=== PATIENT | male | born 1975 | race Caucasian/White ===

== ENCOUNTER 2016-12-29 15:40 | Inpatient (IN) | payer SELFPAY ==
[~2016-12-29] VITALS: Ht 170.2 cm; Wt 81.6 kg
[2016-12-29] MEDS ORDERED: IV NORMAL SALINE 1000ML BAG 1,000 ML IV SCH (15:48)
--- NOTE | 2016-12-29 15:48 | PHYS DOC ---
Adult General Chief Complaint Chief Complaint: ABDOMINAL PAIN HPI HPI Patient is a 41 year old male who presents with with left upper quadrant pain. He states it started 10 days ago and he thought he had food poisoning we had nausea vomiting and since then is calm down but he still has right upper quadrant pain that is worse about 15-30 minutes after he tries to eat. He denies any vomiting this had nausea. He denies any blood in his stools or dark tarry stools. His last bowel movement was this morning which was loose. He states the pain never completely goes away but during the middle the night at its best and then when he gets up in the mornings it starts all over again. 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 He states today his symptoms got worse. He denies any right lower quadrant pain, dysuria, fevers. Review of Systems Review of Systems Constitutional: Denies fever or chills [] Eyes: Denies change in visual acuity, redness, or eye pain [] HENT: Denies nasal congestion or sore throat [] Respiratory: Denies cough or shortness of breath [] Cardiovascular: No additional information not addressed in HPI [] GI: Denies abdominal pain, nausea, vomiting, bloody stools or diarrhea [] : Denies dysuria or hematuria [] Musculoskeletal: Denies back pain or joint pain [] Integument: Denies rash or skin lesions [] Neurologic: Denies headache, focal weakness or sensory changes [] Endocrine: Denies polyuria or polydipsia [] Current Medications Current Medications Current Medications Medications (Trade) Dose Ordered Sig/Faustino Start Time Stop Time Status Last Admin Dose Admin Info (Do NOT chart on this entry -- for MONITORING) 1 each PRN DAILY PRN 12/29/16 19:45 12/31/16 19:44 Iohexol (Omnipaque 300 Mg/ml) 75 ml 1X ONCE 12/29/16 20:00 12/29/16 20:01 DC 12/29/16 19:46 75 ML Morphine Sulfate 4 mg PRN Q15MIN PRN 12/29/16 16:00 12/30/16 00:00 12/29/16 20:34 4 MG Ondansetron HCl (Zofran) 4 mg 1X ONCE 12/29/16 16:00 12/29/16 16:10 DC Sodium Chloride 1,000 ml @ 1,000 mls/hr 1X ONCE 12/29/16 17:00 12/29/16 17:59 DC 12/29/16 16:53 1,000 MLS/HR Allergies Allergies Allergies Coded Allergies Type Severity Reaction Last Updated Verified No Known Drug Allergies 12/29/16 No Physical Exam Physical Exam Constitutional: Well developed, well nourished, no acute distress, non-toxic appearance. [] HENT: Normocephalic, atraumatic, bilateral external ears normal, oropharynx moist, no oral exudates, nose normal. [] Eyes: PERRLA, EOMI, conjunctiva normal, no discharge. [] Neck: Normal range of motion, no tenderness, supple, no stridor. [] Cardiovascular:Heart rate regular rhythm, no murmur [] Lungs & Thorax: Bilateral breath sounds clear to auscultation [] Abdomen: Bowel sounds normal, soft, mild tender palpation in the epigastric and right upper quadrant, no rebound or guarding, no masses, no pulsatile masses. [ ] Skin: Warm, dry, no erythema, no rash. [] Back: No tenderness, no CVA tenderness. [] Extremities: No tenderness, no cyanosis, no clubbing, ROM intact, no edema. [] Neurologic: Alert and oriented X 3, normal motor function, normal sensory function, no focal deficits noted. [] Psychologic: Affect normal, judgement normal, mood normal. [] Current Patient Data Vital Signs Vital Signs Date Time Temp Pulse Resp B/P (MAP) Pulse Ox O2 Delivery O2 Flow Rate FiO2 12/29/16 20:34 22 98 Room Air 12/29/16 18:38 66 120/77 (91) 12/29/16 15:45 98.3 98.3 Lab Values Laboratory Tests Test 12/29/16 16:00 12/29/16 16:45 White Blood Count 10.0 x10^3/uL (4.0-11.0) Red Blood Count 5.28 x10^6/uL (4.30-5.70) Hemoglobin 17.8 g/dL (13.0-17.5) H Hematocrit 51.3 % (39.0-53.0) Mean Corpuscular Volume 97 fL (79-100) Mean Corpuscular Hemoglobin 34 pg (25-35) Mean Corpuscular Hemoglobin Concent 35 g/dL (31-37) Red Cell Distribution Width 14.1 % (11.5-14.5) Platelet Count 251 x10^3/uL (140-400) Neutrophils (%) (Auto) 69 % (31-73) Lymphocytes (%) (Auto) 23 % (24-48) L Monocytes (%) (Auto) 5 % (0-9) Eosinophils (%) (Auto) 1 % (0-3) Basophils (%) (Auto) 1 % (0-3) Neutrophils # (Auto) 6.9 x10^3uL (1.8-7.7) Lymphocytes # (Auto) 2.3 x10^3/uL (1.0-4.8) Monocytes # (Auto) 0.5 x10^3/uL (0.0-1.1) Eosinophils # (Auto) 0.1 x10^3/uL (0.0-0.7) Basophils # (Auto) 0.1 x10^3/uL (0.0-0.2) Prothrombin Time 12.6 SEC (11.7-14.0) Prothrombin Time INR 1.0 (0.8-1.1) PTT 26 SEC (24-38) Sodium Level 142 mmol/L (136-145) Potassium Level 3.6 mmol/L (3.5-5.1) Chloride Level 104 mmol/L (98-107) Carbon Dioxide Level 26 mmol/L (21-32) Anion Gap 12 (6-14) Blood Urea Nitrogen 12 mg/dL (8-26) Creatinine 1.3 mg/dL (0.7-1.3) Estimated GFR (Cockcroft-Gault) 60.5 Glucose Level 97 mg/dL (70-99) Calcium Level 9.0 mg/dL (8.5-10.1) Total Bilirubin 0.7 mg/dL (0.2-1.0) Direct Bilirubin 0.1 mg/dL (0.0-0.2) Aspartate Amino Transferase (AST) 20 U/L (15-37) Alanine Aminotransferase (ALT) 41 U/L (16-63) Alkaline Phosphatase 70 U/L (46-116) Creatine Kinase 250 U/L (39-308) Creatine Kinase MB (Mass) 0.7 ng/mL (0.0-3.6) Creatine Kinase MB Relative Index 0.3 % (0-4) Troponin I Quantitative < 0.017 ng/mL (0.000-0.055) Total Protein 7.5 g/dL (6.4-8.2) Albumin 4.3 g/dL (3.4-5.0) Lipase 127 U/L (73-393) Urine Collection Type Unknown Urine Color Jessica Urine Clarity Clear Urine pH 5.5 Urine Specific [place] >=1.030 Urine Protein Negative mg/dL (NEG-TRACE) Urine Glucose (UA) Negative mg/dL (NEG) Urine Ketones (Stick) Negative mg/dL (NEG) Urine Blood Negative (NEG) Urine Nitrite Negative (NEG) Urine Bilirubin Negative (NEG) Urine Urobilinogen Dipstick 1.0 mg/dL (0.2 mg/dL) Urine Leukocyte Esterase Negative (NEG) Urine RBC 0 /HPF (0-2) Urine WBC Occ /HPF (0-4) Urine Squamous Epithelial Cells Occ /LPF Urine Bacteria 0 /HPF (0-FEW) Urine Opiates Screen Neg (NEG) Urine Methadone Screen Neg (NEG) Urine Barbiturates Neg (NEG) Urine Phencyclidine Screen Neg (NEG) Urine Amphetamine/Methamphetamine Neg (NEG) Urine Benzodiazepines Screen Neg (NEG) Urine Cocaine Screen Neg (NEG) Urine Cannabinoids Screen Neg (NEG) Urine Ethyl Alcohol Neg (NEG) Laboratory Tests 12/29/16 16:00 Laboratory Tests 12/29/16 16:00 EKG EKG [] Radiology/Procedures Radiology/Procedures [facility] [address] [place] [address] IMAGING REPORT Signed PATIENT: JHONNY LARKIN ACCOUNT: [id number] : 1975 LOCATION: ER AGE: 41 SEX: M EXAM STATUS: REG ER ORD. PHYSICIAN: MANDY ANGELES MD REASON: ruq pain PROCEDURE: ABDOMEN LTD EXAM: RIGHT UPPER QUADRANT ULTRASOUND. HISTORY: Right upper quadrant pain. COMPARISON: None. FINDINGS: Sonographic evaluation of the right upper quadrant was performed. Hyperechogenicity of the hepatic parenchyma is consistent with diffuse hepatic steatosis. This lowers sensitivity for focal lesions. None are seen. The gallbladder is unremarkable without evidence of stones, wall thickening or pericholecystic fluid. There is no sonographic Duran sign. The common duct measures 3 mm. The pancreas is obscured by bowel gas. The right kidney measures 12.5 cm. Cortical thickness and echogenicity are preserved. There is no hydronephrosis. The visualized portions of the abdominal aorta and inferior vena cava are grossly patent and normal in caliber. IMPRESSION: 1. Diffuse hepatic steatosis. 2. The pancreas is obscured currently. Electronically signed by: Abbey Velasquez MD (12/29/2016 7:02 PM) [facility] DICTATED and SIGNED BY: CATHERINE VELASQUEZ MD DATE: 12/29/16 608 CC: MANDY ANGELES MD; NO PCP ~ [facility] [address] [place] [address] IMAGING REPORT Signed PATIENT: JHONNY LARKIN ACCOUNT: [id number] : 1975 LOCATION: ER AGE: 41 SEX: M EXAM STATUS: REG ER ORD. PHYSICIAN: MANDY ANGELES MD REASON: ruq pain PROCEDURE: CT ABD PELV W/ IV CONTRST ONLY CT abdomen and pelvis with contrast: Reason for examination: Right upper quadrant abdominal pain for 10 days. Helical images were obtained through the abdomen and pelvis with intravenous administration of 75 cc Omnipaque 300. Reconstruction was performed in sagittal and coronal planes. Exposure: One or more of the following individualized dose reduction techniques were utilized for this examination: 1. Automated exposure control 2. Adjustment of the mA and/or kV according to patient size 3. Use of iterative reconstruction technique. The lung bases are clear. The heart size is normal with no pericardial effusion evident. No abnormality seen at the liver, spleen, adrenal glands, pancreas or gallbladder. The kidneys show no renal masses, renal calculi, hydronephrosis or evidence of obstructive uropathy. No abnormality seen at the stomach. Small intestinal tract however show some wall thickening in the region of the jejunum and some small intestinal dilatation down to the pelvis. The colon shows no diverticulosis or diverticulitis. No abnormality seen at the appendix. The abdominal aorta shows some arteriosclerotic vascular calcification. No abnormality seen at the inferior vena cava. No abnormality seen at the bladder, prostate gland or seminal vesicles. No free fluid or free air seen in the abdomen or pelvis. No acute bony abnormalities are seen. IMPRESSION: Thickening of the wall in the jejunum and dilatation of the proximal small intestine without evidence of obstruction. No gallbladder disease. No abnormality at the appendix. Electronically signed by: Rachael Mercedes MD (12/29/2016 8:15 PM) [facility] DICTATED and SIGNED BY: RACHAEL MERCEDES MD DATE: 12/29/162007 CC: MANDY ANGELES MD; NO PCP ~ Impressions: Right upper quadrant abdominal pain Course & Med Decision Making Course & Med Decision Making Pertinent Labs and Imaging studies reviewed. (See chart for details) CT scan shows enteritis essentially. His pain is not controlled is requiring IV morphine. We'll admit for pain control and GI consultation. Interim orders have been written and spoke with the hospitalist. Dragon Disclaimer Dragon Disclaimer This electronic medical record was generated, in whole or in part, using a voice recognition dictation system. Departure Departure Impression: Primary Impression: Abdominal pain Disposition: ADMITTED INPATIENT Admitting Physician: Other Condition: STABLE Problem Qualifiers Primary Impression: Abdominal pain Abdominal location: right upper quadrant Qualified Codes: R10.11 - Right upper quadrant pain MANDY ANGELES MD Dec 29, 2016 15:48
[2016-12-29] MEDS ORDERED: ONDANSETRON PF 4 MG/2 ML VIAL. IV ONE (16:00)
[2016-12-29 16:11] LABS: BASO # 0.1 x10^3/uL (0.0-0.2); BASO % 1 % (0-3); EOS % 1 % (0-3); HEMATOCRIT 51.3 % (39.0-53.0); HEMOGLOBIN 17.8 g/dL (13.0-17.5); LYMPH # 2.3 x10^3/uL (1.0-4.8); LYMPH % 23 % (24-48); MEAN CORPUSCULAR HEMOGLOBIN 34 pg (25-35); MEAN CORPUSCULAR HGB CONC 35 g/dL (31-37); MEAN CORPUSCULAR VOLUME 97 fL (79-100); MONO % 5 % (0-9); NEUT % 69 % (31-73); PLATELET COUNT 251 x10^3/uL (140-400); RED BLOOD COUNT 5.28 x10^6/uL (4.30-5.70); RED CELL DISTRIBUTION WIDTH 14.1 % (11.5-14.5)
[2016-12-29] MEDS: MORPHINE SULFATE 4 MG/ML DISP.SYRIN. IV/SQ PRN ×2 (16:14→20:34)
[2016-12-29 16:20] LABS: CREATININE 1.3 mg/dL (0.7-1.3); GFR 60.5; POTASSIUM 3.6 mmol/L (3.5-5.1); PROTHROMBIN TIME PATIENT 12.6 SEC (11.7-14.0)
[2016-12-29 16:26] LABS: ALBUMIN 4.3 g/dL (3.4-5.0); DIRECT BILIRUBIN 0.1 mg/dL (0.0-0.2); TOTAL BILIRUBIN 0.7 mg/dL (0.2-1.0); TOTAL PROTEIN 7.5 g/dL (6.4-8.2)
[2016-12-29 16:34] LABS: CKMB MASS 0.7 ng/mL (0.0-3.6)
[2016-12-29] MEDS ORDERED: IV NORMAL SALINE 1000ML BAG 1,000 ML IV ONE (17:00)
[2016-12-29 17:15] LABS: BILIRUBIN,URINE NEGATIVE (NEG); GLUCOSE,URINE NEGATIVE (NEG); NITRITE,URINE NEGATIVE (NEG); PH,URINE 5.5; PROTEIN,URINE NEGATIVE (NEG-TRACE)
[2016-12-29 17:23] LABS: BARBITURATES NEG (NEG); BENZODIAZEPINES NEG (NEG); CANNABINOIDS NEG (NEG); COCAINE NEG (NEG); METHADONE NEG (NEG); OPIATES NEG (NEG); PHENCYCLIDINE NEG (NEG)
[2016-12-29 17:30] LABS: BACTERIA,URINE 0 /HPF (0-FEW); RBC,URINE 0 /HPF (0-2); SQUAMOUS EPITHELIAL CELL,UR OCC /LPF; WBC,URINE OCC /HPF (0-4)
--- NOTE | 2016-12-29 19:06 | RAD ---
EXAM: RIGHT UPPER QUADRANT ULTRASOUND. HISTORY: Right upper quadrant pain. COMPARISON: None. FINDINGS: Sonographic evaluation of the right upper quadrant was performed. Hyperechogenicity of the hepatic parenchyma is consistent with diffuse hepatic steatosis. This lowers sensitivity for focal lesions. None are seen. The gallbladder is unremarkable without evidence of stones, wall thickening or pericholecystic fluid. There is no sonographic Duran sign. The common duct measures 3 mm. The pancreas is obscured by bowel gas. The right kidney measures 12.5 cm. Cortical thickness and echogenicity are preserved. There is no hydronephrosis. The visualized portions of the abdominal aorta and inferior vena cava are grossly patent and normal in caliber. IMPRESSION: 1. Diffuse hepatic steatosis. 2. The pancreas is obscured currently. Electronically signed by: Abbey Velasquez MD (12/29/2016 7:02 PM) [facility]
[2016-12-29] MEDS ORDERED: CONTRAST GIVEN MC PRN (19:45)
[2016-12-29] MEDS ORDERED: IOHEXOL 300 MG/ML 75 ML VIAL IV ONE (20:00)
--- NOTE | 2016-12-29 20:18 | RAD ---
CT abdomen and pelvis with contrast: Reason for examination: Right upper quadrant abdominal pain for 10 days. Helical images were obtained through the abdomen and pelvis with intravenous administration of 75 cc Omnipaque 300. Reconstruction was performed in sagittal and coronal planes. Exposure: One or more of the following individualized dose reduction techniques were utilized for this examination: 1. Automated exposure control 2. Adjustment of the mA and/or kV according to patient size 3. Use of iterative reconstruction technique. The lung bases are clear. The heart size is normal with no pericardial effusion evident. No abnormality seen at the liver, spleen, adrenal glands, pancreas or gallbladder. The kidneys show no renal masses, renal calculi, hydronephrosis or evidence of obstructive uropathy. No abnormality seen at the stomach. Small intestinal tract however show some wall thickening in the region of the jejunum and some small intestinal dilatation down to the pelvis. The colon shows no diverticulosis or diverticulitis. No abnormality seen at the appendix. The abdominal aorta shows some arteriosclerotic vascular calcification. No abnormality seen at the inferior vena cava. No abnormality seen at the bladder, prostate gland or seminal vesicles. No free fluid or free air seen in the abdomen or pelvis. No acute bony abnormalities are seen. IMPRESSION: Thickening of the wall in the jejunum and dilatation of the proximal small intestine without evidence of obstruction. No gallbladder disease. No abnormality at the appendix. Electronically signed by: Reanna Willams MD (12/29/2016 8:15 PM) [facility]
[2016-12-29] MEDS ORDERED: ONDANSETRON PF 4 MG/2 ML VIAL. IV PRN (21:00)
[2016-12-29 22:25] VITALS: BP 138/96
[2016-12-29] MEDS: POTASSIUM CHLORIDE 30 MEQ in IV 1/2 NORMAL SALINE 1,000 ML IV SCH (22:30)
[2016-12-29] MEDS: NICOTINE 21MG PATCH. TD SCH (22:30)
[2016-12-29] MEDS: MORPHINE SULFATE 2 MG/ML DISP.SYRIN. IV PRN (22:41)
--- NOTE | 2016-12-29 22:49 | HP ---
ADMIT DATE: 12/29/2016 CHIEF COMPLAINT: Abdominal pain. HISTORY OF PRESENT ILLNESS: The patient is a 41-year-old gentleman without any past medical issues who presented to the Emergency Room with severe abdominal pain. He relates that this actually started about 10 days ago when he was in [place]. It started suddenly a few hours after eating and he vomited multiple times. 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 The third day, he was able to return back to work, but pain was off and on, persistent over the next 10 days. He admits to occasional vomiting, also to watery light-colored diarrhea. He relates that even before these events his bowel movements have been on the low side, but typically one a day and normal brown color. He denies any fevers or chills. Denies any chest pain or shortness of breath. Rest of organ system review is negative. He originally had planned to make it home to [place], but pain episode just outside of town today prompted him to seek medical care here. PAST MEDICAL HISTORY: None. FAMILY HISTORY: Positive for CAD. No GI diseases known. 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 Smokes about a pack a day. Denies any drugs, drinks alcohol only when at home and in moderation. ALLERGIES: No known drug allergies. HOME MEDICATIONS: Aleve p.r.n. REVIEW OF SYSTEMS: Positive as per HPI. Rest of organ system review is negative. PHYSICAL EXAMINATION: VITAL SIGNS: From today show blood pressure of 120/77, heart rate of 66, respiratory rate at 20, he is afebrile. GENERAL: This is a well-nourished 41-year-old gentleman, alert and oriented, in no acute distress. HEENT: Shows no scleral icterus. Oral mucosa is pink and moist. NECK: Supple, without any lymphadenopathy. LUNGS: Clear to auscultation bilaterally. HEART: Has regular rate and rhythm. ABDOMEN: Has positive bowel sounds. Tenderness to palpation in the epigastric area as well as right upper quadrant. EXTREMITIES: Show no edema. SKIN: Warm, soft and dry. NEUROLOGIC: He is grossly intact. Mood is stable. He appears anxious playing with an unlit cigarette in his mouth and hands. LABORATORY DATA: CBC with a WBC of 10.0, hemoglobin at 17.8, platelets of 251. Chemistries with a BUN and creatinine of 12 and 1.3, normal electrolytes, normal LFTs, normal CK and troponin. Albumin at 4.3. Tox screen is negative. Urine analysis normal. IMAGING STUDIES: Ultrasound of the right upper quadrant shows diffuse hepatic steatosis. Gallbladder is unremarkable. CT of the abdomen and pelvis shows thickening of the wall in the jejunum and dilation of the proximal small intestine without evidence of obstruction of gallbladder disease. No abnormality in the appendix. ASSESSMENT AND PLAN: The patient is a 41-year-old gentleman presenting with signs and symptoms of enteritis of his small bowel. We will start him on bowel rest. He will receive intravenous pain medication p.r.n. Gastroenterology will be consulted in a.m. I am not sure if endoscopy will yield any result. For his tobacco addiction, he will be placed on nicotine patch. Although not mentioned in HPI, he does have mild renal insufficiency with an eGFR estimated at 60. We will monitor his BUN, creatinine and electrolytes. Prophylaxis will be achieved with Lovenox. LESLI RAMESH MD DR: MARILOU/nts JOB#: [id number] / [id number] [facility]
[2016-12-29 23:00] VITALS: BP 138/94
[2016-12-30] VITALS (8 sets, daily range): BP systolic 89–121; BP diastolic 50–77
--- NOTE | 2016-12-30 01:13 | ACF ---
Admission Forms Criteria ABDOMINAL PAIN Clinical Indications for Admission to Inpatient Care ( [facility]check or initial the applicable condition/criteria): Admission is indicated for ANY ONE of the following (1)(2)(3)(4)(5)(6): [ ]I. Surgery needed that cannot be performed on ambulatory basis [ ]II. Peritoneal signs present (eg, rebound tenderness, rigidity) [ ]III. Evaluation requires patient to not eat or drink for extended period ( eg, more than 24 hours). [X]IV. Inpatient admission required[B] rather than observation care (see Abdominal Pain: Observation Care guideline as appropriate) because of ANY ONE of the following(7)(8)(9): [ ] a) Hemodynamic instability [ ]b) Severe pain requiring acute inpatient management [X]c) Identification of etiology or finding that requires inpatient care (eg, aortic dissection, free air,bowel ischemia)(10) [ ]d) Absent bowel sounds with complete ileus (11) [ ]e) Signs of intestinal obstruction[C] [ ]f) Suspected toxic megacolon [ ]g) Severe electrolyte abnormalities requiring inpatient care [ ]h) High fever or infection requiring inpatient admission as indicated by ANY ONE of the following (12)(13): [ ]i) Appropriate outpatient or observation care antimicrobial treatment unavailable, not effective, or not feasible [ ]ii) Documented bacteremia [ ]iii) Temperature greater than 104.9 degrees F (40.5 degrees C) (oral) [ ]iv) Temperature greater than 103.1 degrees F (39.5 degrees C) ( oral) or less than 96.8 degrees F (36 degrees C) (rectal) that does not respond to all emergency treatment measures [ ]i) IV fluid required rather than oral rehydration to replace significant ongoing (eg, for greater than 24 hours) losses (greater than 3 L/m2 per day)(14)(15) [ ]j) Percutaneous or open drainage (eg, abscess, biliary tract) procedures [ ]k) Parenteral nutrition regimen that must be implemented on inpatient basis [ ]l) Other condition, treatment, or monitoring requiring inpatient admission Extended stay beyond goal length of stay may be needed for (1)(3)(4)(10)(16): [ ]a) Surgery (e.g., colectomy, revascularization procedure) [ ]b) Persistent abdominal pain with suspected intra-abdominal process [ ]c) Diagnosed condition requiring continued stay (e.g., pancreatitis, complicated diverticulitis) The original [facility] content created by [facility] has been revised. The portions of the content which have been revised are identified through the use of italic text, and [facility] has neither reviewed nor approved the modified material.All other unmodified content is copyright [facility]. Please see references footnoted in the original [facility] edition 2014 Admission Criteria Met?: Yes FELIX DUPREE Dec 30, 2016 01:13
[2016-12-30 06:22] LABS: BASO # 0.1 x10^3/uL (0.0-0.2); BASO % 1 % (0-3); EOS % 3 % (0-3); HEMATOCRIT 46.6 % (39.0-53.0); LYMPH # 2.8 x10^3/uL (1.0-4.8); LYMPH % 28 % (24-48); MEAN CORPUSCULAR HEMOGLOBIN 33 pg (25-35); MEAN CORPUSCULAR HGB CONC 34 g/dL (31-37); MEAN CORPUSCULAR VOLUME 96 fL (79-100); MONO % 6 % (0-9); NEUT % 61 % (31-73); PLATELET COUNT 227 x10^3/uL (140-400); RED BLOOD COUNT 4.85 x10^6/uL (4.30-5.70); RED CELL DISTRIBUTION WIDTH 14.1 % (11.5-14.5); WHITE BLOOD COUNT 9.8 x10^3/uL (4.0-11.0)
--- NOTE | 2016-12-30 06:49 | EKG ---
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
[2016-12-30 06:51] LABS: ALBUMIN 3.3 g/dL (3.4-5.0); CALCIUM 8.2 mg/dL (8.5-10.1); DIRECT BILIRUBIN 0.2 mg/dL (0.0-0.2); GFR 81.9; TOTAL BILIRUBIN 0.8 mg/dL (0.2-1.0); TOTAL PROTEIN 5.9 g/dL (6.4-8.2)
[2016-12-30] MEDS: MORPHINE SULFATE 2 MG/ML DISP.SYRIN. IV PRN ×3 (08:40→15:26)
[2016-12-30] MEDS: NICOTINE 21MG PATCH. TD SCH (08:42)
--- NOTE | 2016-12-30 09:41 | PDOC2 ---
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 3 months ago had upper abd pain, vomiting, and diarrhea x 1 week, resolved. Thought food poisoning but symptoms recurred on 12/19/16; he awoke that night w/ significant vomiting. Pain is "under sternum," constant but worse ~15 min after eating, radiates to right flank, and feels like "muscle spasms." Vomiting occurred the first night , resolved, then recurred 3-4 days ago but not since. Had drenching sweats during the night ~5 days ago. Has chronic loose stools (1-2 daily) - perhaps sometimes more loose or watery now, also yellow. Last BM yesterday, soft. Denies hematemesis, hematochezia, melena. No weight loss. Occ heartburn after eating certain foods, takes Tums occasionally. Takes Aleve once weekly for KEN. No previous EGD or colonoscopy. Labs unrevealing. RUQ US w/ hepatic steatosis, CT A/P w/ thickening of jejunum and dilated proximal small intestine w/o obstruction. Pain 10/04, RN present to administer pain medication. PMH: PMH: headaches, nephrolithiasis, cervical fusion FH: Family History: No pertinent hx (denies GI cancers, IBD, liver and pancreatic disease) Social History: Smoke: 1 pack per day ALCOHOL: occassional (when not traveling/driving for work) Drugs: None ROS: GEN: +sweats HEENT: Denies blurred vision, sore throat CV: Denies chest pain RESP: Denies shortness of air, cough GI: Per HPI : Denies hematuria, dysuria ENDO: Denies weight changes NEURO: Denies confusion, dizziness MSK: Denies weakness, joint pain/swelling SKIN: Denies jaundice, pruritus Vitals: Vitals: Vital Signs Date Time Temp Pulse Resp B/P (MAP) Pulse Ox O2 Delivery O2 Flow Rate FiO2 12/30/16 08:40 Room Air 12/30/16 07:30 97.5 70 18 107/71 (83) 94 97.5 Labs: Labs: Laboratory Tests Test 12/29/16 16:00 12/29/16 16:45 12/30/16 05:20 White Blood Count 10.0 x10^3/uL (4.0-11.0) 9.8 x10^3/uL (4.0-11.0) Red Blood Count 5.28 x10^6/uL (4.30-5.70) 4.85 x10^6/uL (4.30-5.70) Hemoglobin 17.8 g/dL (13.0-17.5) 16.0 g/dL (13.0-17.5) Hematocrit 51.3 % (39.0-53.0) 46.6 % (39.0-53.0) Mean Corpuscular Volume 97 fL (79-100) 96 fL (79-100) Mean Corpuscular Hemoglobin 34 pg (25-35) 33 pg (25-35) Mean Corpuscular Hemoglobin Concent 35 g/dL (31-37) 34 g/dL (31-37) Red Cell Distribution Width 14.1 % (11.5-14.5) 14.1 % (11.5-14.5) Platelet Count 251 x10^3/uL (140-400) 227 x10^3/uL (140-400) Neutrophils (%) (Auto) 69 % (31-73) 61 % (31-73) Lymphocytes (%) (Auto) 23 % (24-48) 28 % (24-48) Monocytes (%) (Auto) 5 % (0-9) 6 % (0-9) Eosinophils (%) (Auto) 1 % (0-3) 3 % (0-3) Basophils (%) (Auto) 1 % (0-3) 1 % (0-3) Neutrophils # (Auto) 6.9 x10^3uL (1.8-7.7) 6.0 x10^3uL (1.8-7.7) Lymphocytes # (Auto) 2.3 x10^3/uL (1.0-4.8) 2.8 x10^3/uL (1.0-4.8) Monocytes # (Auto) 0.5 x10^3/uL (0.0-1.1) 0.6 x10^3/uL (0.0-1.1) Eosinophils # (Auto) 0.1 x10^3/uL (0.0-0.7) 0.3 x10^3/uL (0.0-0.7) Basophils # (Auto) 0.1 x10^3/uL (0.0-0.2) 0.1 x10^3/uL (0.0-0.2) Prothrombin Time 12.6 SEC (11.7-14.0) Prothromb Time International Ratio 1.0 (0.8-1.1) Activated Partial Thromboplast Time 26 SEC (24-38) Sodium Level 142 mmol/L (136-145) 142 mmol/L (136-145) Potassium Level 3.6 mmol/L (3.5-5.1) 4.0 mmol/L (3.5-5.1) Chloride Level 104 mmol/L (98-107) 107 mmol/L (98-107) Carbon Dioxide Level 26 mmol/L (21-32) 27 mmol/L (21-32) Anion Gap 12 (6-14) 8 (6-14) Blood Urea Nitrogen 12 mg/dL (8-26) 11 mg/dL (8-26) Creatinine 1.3 mg/dL (0.7-1.3) 1.0 mg/dL (0.7-1.3) Estimated GFR (Cockcroft-Gault) 60.5 81.9 Glucose Level 97 mg/dL (70-99) 90 mg/dL (70-99) Calcium Level 9.0 mg/dL (8.5-10.1) 8.2 mg/dL (8.5-10.1) Total Bilirubin 0.7 mg/dL (0.2-1.0) 0.8 mg/dL (0.2-1.0) Direct Bilirubin 0.1 mg/dL (0.0-0.2) 0.2 mg/dL (0.0-0.2) Aspartate Amino Transf (AST/SGOT) 20 U/L (15-37) 16 U/L (15-37) Alanine Aminotransferase (ALT/SGPT) 41 U/L (16-63) 29 U/L (16-63) Alkaline Phosphatase 70 U/L (46-116) 57 U/L (46-116) Creatine Kinase 250 U/L (39-308) Creatine Kinase MB (Mass) 0.7 ng/mL (0.0-3.6) Creatine Kinase MB Relative Index 0.3 % (0-4) Troponin I Quantitative < 0.017 ng/mL (0.000-0.055) Total Protein 7.5 g/dL (6.4-8.2) 5.9 g/dL (6.4-8.2) Albumin 4.3 g/dL (3.4-5.0) 3.3 g/dL (3.4-5.0) Lipase 127 U/L (73-393) Urine Collection Type Unknown Urine Color Jessica Urine Clarity Clear Urine pH 5.5 Urine Specific [place] >=1.030 Urine Protein Negative mg/dL (NEG-TRACE) Urine Glucose (UA) Negative mg/dL (NEG) Urine Ketones (Stick) Negative mg/dL (NEG) Urine Blood Negative (NEG) Urine Nitrite Negative (NEG) Urine Bilirubin Negative (NEG) Urine Urobilinogen Dipstick 1.0 mg/dL (0.2 mg/dL) Urine Leukocyte Esterase Negative (NEG) Urine RBC 0 /HPF (0-2) Urine WBC Occ /HPF (0-4) Urine Squamous Epithelial Cells Occ /LPF Urine Bacteria 0 /HPF (0-FEW) Urine Opiates Screen Neg (NEG) Urine Methadone Screen Neg (NEG) Urine Barbiturates Neg (NEG) Urine Phencyclidine Screen Neg (NEG) Urine Amphetamine/Methamphetamine Neg (NEG) Urine Benzodiazepines Screen Neg (NEG) Urine Cocaine Screen Neg (NEG) Urine Cannabinoids Screen Neg (NEG) Urine Ethyl Alcohol Neg (NEG) Allergies: Coded Allergies: No Known Drug Allergies (Unverified , 12/29/16) Medications: Current Medications Medications (Trade) Dose Ordered Sig/Faustino Route PRN Reason Start Time Stop Time Status Last Admin Dose Admin Morphine Sulfate 4 mg PRN Q15MIN PRN IV/SQ PAIN GREATER THAN 3/10 12/29/16 16:00 12/30/16 00:00 DC 12/29/16 20:34 Sodium Chloride 1,000 ml @ 1,000 mls/hr Q1H IV 12/29/16 15:48 12/29/16 16:47 DC 12/29/16 16:06 Sodium Chloride 1,000 ml @ 1,000 mls/hr 1X ONCE IV 12/29/16 17:00 12/29/16 17:59 DC 12/29/16 16:53 Iohexol (Omnipaque 300 Mg/ml) 75 ml 1X ONCE IV 12/29/16 20:00 12/29/16 20:01 DC 12/29/16 19:46 Morphine Sulfate 2 mg PRN Q2HR PRN IV SEVERE PAIN 12/29/16 21:00 12/30/16 20:59 12/30/16 08:40 Nicotine (Nicoderm Cq 21mg) 1 patch DAILY TD 12/29/16 22:00 12/30/16 08:42 Potassium Chloride 30 meq/ Sodium Chloride 1,015 ml @ 75 mls/hr [id number] IV 12/29/16 23:00 12/29/16 22:30 Imaging: Imaging: RUQ US IMPRESSION: 1. Diffuse hepatic steatosis. 2. The pancreas is obscured currently. CT A/P w/ IV contrast IMPRESSION: Thickening of the wall in the jejunum and dilatation of the proximal small intestine without evidence of obstruction. No gallbladder disease. No abnormality at the appendix. PE: GEN: NAD HEENT: Atraumatic, PERRL LUNGS: CTAB anteriorly HEART: RRR ABD: BS+, epigastric pain, less so toward RUQ, soft EXTREMITY: No edema SKIN: No rashes, no jaundice NEURO/PSYCH: A & O 3 A/P: A/P: Upper abd pain, vomiting, loose stools - recurrent -epigastric pain to right flank, worse after eating -chronic loose stools, perhaps some worse during illness -had drenching sweats x 1 Abnormal abd imaging -hepatic steatosis -thickened jejunum, dilated proximal small intestine Heartburn -occasional, treated w/ Tums PRN, no previous EGD CRC screen -no previous colonoscopy, average risk -- Currently NPO, continue this for now, will review w/ Dr. Fuentes. APARNA DAVILA Dec 30, 2016 09:40
--- NOTE | 2016-12-30 10:28 | PDOC ---
PROGRESS NOTES Chief Complaint Chief Complaint Abd pain ASSESSMENT AND PLAN: 1. SB enteritis: noted on CT. unclear etiology. awaiting GI input. Morphine IV PRN for now. remains NPO 2. Hepatic steatosis 3. Tobaccoism: on patch 4. CKD2-3: stable 5. Prophylaxis: mechanical for now History of Present Illness History of Present Illness sharp, crampy pain, waxing and waning. no BM in hospital Vitals Vitals Vital Signs Date Time Temp Pulse Resp B/P (MAP) Pulse Ox O2 Delivery O2 Flow Rate FiO2 12/30/16 08:40 Room Air 12/30/16 07:30 97.5 70 18 107/71 (83) 94 97.5 Physical Exam General: Alert, Cooperative, No acute distress Heart: Regular rate Lungs: Clear Abdomen: Soft, Other (decreased BS, mild TTp throughout) Labs LABS Laboratory Tests Test 12/29/16 16:00 12/29/16 16:45 12/30/16 05:20 White Blood Count 10.0 x10^3/uL (4.0-11.0) 9.8 x10^3/uL (4.0-11.0) Red Blood Count 5.28 x10^6/uL (4.30-5.70) 4.85 x10^6/uL (4.30-5.70) Hemoglobin 17.8 g/dL (13.0-17.5) 16.0 g/dL (13.0-17.5) Hematocrit 51.3 % (39.0-53.0) 46.6 % (39.0-53.0) Mean Corpuscular Volume 97 fL (79-100) 96 fL (79-100) Mean Corpuscular Hemoglobin 34 pg (25-35) 33 pg (25-35) Mean Corpuscular Hemoglobin Concent 35 g/dL (31-37) 34 g/dL (31-37) Red Cell Distribution Width 14.1 % (11.5-14.5) 14.1 % (11.5-14.5) Platelet Count 251 x10^3/uL (140-400) 227 x10^3/uL (140-400) Neutrophils (%) (Auto) 69 % (31-73) 61 % (31-73) Lymphocytes (%) (Auto) 23 % (24-48) 28 % (24-48) Monocytes (%) (Auto) 5 % (0-9) 6 % (0-9) Eosinophils (%) (Auto) 1 % (0-3) 3 % (0-3) Basophils (%) (Auto) 1 % (0-3) 1 % (0-3) Neutrophils # (Auto) 6.9 x10^3uL (1.8-7.7) 6.0 x10^3uL (1.8-7.7) Lymphocytes # (Auto) 2.3 x10^3/uL (1.0-4.8) 2.8 x10^3/uL (1.0-4.8) Monocytes # (Auto) 0.5 x10^3/uL (0.0-1.1) 0.6 x10^3/uL (0.0-1.1) Eosinophils # (Auto) 0.1 x10^3/uL (0.0-0.7) 0.3 x10^3/uL (0.0-0.7) Basophils # (Auto) 0.1 x10^3/uL (0.0-0.2) 0.1 x10^3/uL (0.0-0.2) Prothrombin Time 12.6 SEC (11.7-14.0) Prothromb Time International Ratio 1.0 (0.8-1.1) Activated Partial Thromboplast Time 26 SEC (24-38) Sodium Level 142 mmol/L (136-145) 142 mmol/L (136-145) Potassium Level 3.6 mmol/L (3.5-5.1) 4.0 mmol/L (3.5-5.1) Chloride Level 104 mmol/L (98-107) 107 mmol/L (98-107) Carbon Dioxide Level 26 mmol/L (21-32) 27 mmol/L (21-32) Anion Gap 12 (6-14) 8 (6-14) Blood Urea Nitrogen 12 mg/dL (8-26) 11 mg/dL (8-26) Creatinine 1.3 mg/dL (0.7-1.3) 1.0 mg/dL (0.7-1.3) Estimated GFR (Cockcroft-Gault) 60.5 81.9 Glucose Level 97 mg/dL (70-99) 90 mg/dL (70-99) Calcium Level 9.0 mg/dL (8.5-10.1) 8.2 mg/dL (8.5-10.1) Total Bilirubin 0.7 mg/dL (0.2-1.0) 0.8 mg/dL (0.2-1.0) Direct Bilirubin 0.1 mg/dL (0.0-0.2) 0.2 mg/dL (0.0-0.2) Aspartate Amino Transf (AST/SGOT) 20 U/L (15-37) 16 U/L (15-37) Alanine Aminotransferase (ALT/SGPT) 41 U/L (16-63) 29 U/L (16-63) Alkaline Phosphatase 70 U/L (46-116) 57 U/L (46-116) Creatine Kinase 250 U/L (39-308) Creatine Kinase MB (Mass) 0.7 ng/mL (0.0-3.6) Creatine Kinase MB Relative Index 0.3 % (0-4) Troponin I Quantitative < 0.017 ng/mL (0.000-0.055) Total Protein 7.5 g/dL (6.4-8.2) 5.9 g/dL (6.4-8.2) Albumin 4.3 g/dL (3.4-5.0) 3.3 g/dL (3.4-5.0) Lipase 127 U/L (73-393) Urine Collection Type Unknown Urine Color Jessica Urine Clarity Clear Urine pH 5.5 Urine Specific [place] >=1.030 Urine Protein Negative mg/dL (NEG-TRACE) Urine Glucose (UA) Negative mg/dL (NEG) Urine Ketones (Stick) Negative mg/dL (NEG) Urine Blood Negative (NEG) Urine Nitrite Negative (NEG) Urine Bilirubin Negative (NEG) Urine Urobilinogen Dipstick 1.0 mg/dL (0.2 mg/dL) Urine Leukocyte Esterase Negative (NEG) Urine RBC 0 /HPF (0-2) Urine WBC Occ /HPF (0-4) Urine Squamous Epithelial Cells Occ /LPF Urine Bacteria 0 /HPF (0-FEW) Urine Opiates Screen Neg (NEG) Urine Methadone Screen Neg (NEG) Urine Barbiturates Neg (NEG) Urine Phencyclidine Screen Neg (NEG) Urine Amphetamine/Methamphetamine Neg (NEG) Urine Benzodiazepines Screen Neg (NEG) Urine Cocaine Screen Neg (NEG) Urine Cannabinoids Screen Neg (NEG) Urine Ethyl Alcohol Neg (NEG) LESLI RAMESH MD Dec 30, 2016 10:28
[2016-12-30] MEDS ORDERED: PROPOFOL 40 ML IV ONE (12:27)
--- NOTE | 2016-12-30 12:49 | PDOC4 ---
PROCEDURE Procedure EGD/biopsies Indication: upper abdominal pain Meds: per anesthesia Findings: E--columnar-lined esophagus from 33-36cm, suggestive of Mercedes's, biopsied. G--non-specific striped erythema, antrum. Pre-pyloric deformity. Antral biopsies. D--1 cm ulcer inferior wall, distal bulb with clean base. Some nodularity in second portion, biopsied. Rosio. well. IMP: Chronic reflux/possibly Mercedes's. DU Abnormal mucosa, second part of duodenum. REC: PPI bid po. Check gastrin. Await biopsies. --other pending. PADMAJA MCLAUGHLIN MD Dec 30, 2016 12:49
[2016-12-30] MEDS: POTASSIUM CHLORIDE 30 MEQ in IV 1/2 NORMAL SALINE 1,000 ML IV SCH (13:27)
[2016-12-30] MEDS: PANTOPRAZOLE 40 MG TABLET.DR. PO SCH (15:24)
[2016-12-30] MEDS ORDERED: oxyCODONE IR 5 MG TABLET PO PRN (16:30)
[2016-12-30] MEDS: oxyCODONE IR 5 MG TABLET PO PRN ×2 (18:01→22:32)
[2016-12-31] MEDS: POTASSIUM CHLORIDE 30 MEQ in IV 1/2 NORMAL SALINE 1,000 ML IV SCH (02:04)
[2016-12-31] MEDS: PANTOPRAZOLE 40 MG TABLET.DR. PO SCH (06:40)
[2016-12-31] MEDS: oxyCODONE IR 5 MG TABLET PO PRN (06:40)
[2016-12-31 07:00] VITALS: BP 125/85
[2016-12-31 07:56] LABS: BASO # 0.1 x10^3/uL (0.0-0.2); BASO % 1 % (0-3); EOS % 3 % (0-3); HEMATOCRIT 47.5 % (39.0-53.0); HEMOGLOBIN 16.1 g/dL (13.0-17.5); LYMPH # 2.1 x10^3/uL (1.0-4.8); LYMPH % 23 % (24-48); MEAN CORPUSCULAR HEMOGLOBIN 33 pg (25-35); MEAN CORPUSCULAR HGB CONC 34 g/dL (31-37); MEAN CORPUSCULAR VOLUME 97 fL (79-100); MONO % 7 % (0-9); NEUT % 66 % (31-73); PLATELET COUNT 219 x10^3/uL (140-400); RED BLOOD COUNT 4.89 x10^6/uL (4.30-5.70); RED CELL DISTRIBUTION WIDTH 13.9 % (11.5-14.5)
[2016-12-31 08:09] LABS: ALBUMIN 3.4 g/dL (3.4-5.0); ALBUMIN/GLOBULIN RATIO 1.2 (1.0-1.7); CALCIUM 8.4 mg/dL (8.5-10.1); CREATININE 1.2 mg/dL (0.7-1.3); GFR 66.4; POTASSIUM 4.2 mmol/L (3.5-5.1); TOTAL BILIRUBIN 0.9 mg/dL (0.2-1.0); TOTAL PROTEIN 6.2 g/dL (6.4-8.2)
[2016-12-31] MEDS: NICOTINE 21MG PATCH. TD SCH (08:44)
[2016-12-31 11:00] VITALS: BP 123/79
--- NOTE | 2016-12-31 11:19 | PDOC ---
Subjective: Subjective: Feeling better, tolerating PO. No n/v, less abd pain, no BM yet. Would like to DC. Objective: Vital Signs: Vital Signs Date Time Temp Pulse Resp B/P (MAP) Pulse Ox O2 Delivery O2 Flow Rate FiO2 12/31/16 07:50 Room Air 12/31/16 07:00 97.5 82 18 125/85 (98) 94 97.5 12/30/16 12:42 4.0 Labs: Laboratory Tests Test 12/31/16 06:43 White Blood Count 9.0 x10^3/uL Red Blood Count 4.89 x10^6/uL Hemoglobin 16.1 g/dL Hematocrit 47.5 % Mean Corpuscular Volume 97 fL Mean Corpuscular Hemoglobin 33 pg Mean Corpuscular Hemoglobin Concent 34 g/dL Red Cell Distribution Width 13.9 % Platelet Count 219 x10^3/uL Neutrophils (%) (Auto) 66 % Lymphocytes (%) (Auto) 23 % Monocytes (%) (Auto) 7 % Eosinophils (%) (Auto) 3 % Basophils (%) (Auto) 1 % Neutrophils # (Auto) 5.9 x10^3uL Lymphocytes # (Auto) 2.1 x10^3/uL Monocytes # (Auto) 0.6 x10^3/uL Eosinophils # (Auto) 0.3 x10^3/uL Basophils # (Auto) 0.1 x10^3/uL Sodium Level 141 mmol/L Potassium Level 4.2 mmol/L Chloride Level 107 mmol/L Carbon Dioxide Level 27 mmol/L Anion Gap 7 Blood Urea Nitrogen 10 mg/dL Creatinine 1.2 mg/dL Estimated GFR (Cockcroft-Gault) 66.4 BUN/Creatinine Ratio 8 Glucose Level 96 mg/dL Calcium Level 8.4 mg/dL Total Bilirubin 0.9 mg/dL Aspartate Amino Transf (AST/SGOT) 15 U/L Alanine Aminotransferase (ALT/SGPT) 32 U/L Alkaline Phosphatase 62 U/L Total Protein 6.2 g/dL Albumin 3.4 g/dL Albumin/Globulin Ratio 1.2 Imaging: EGD 12/30/16 E--columnar-lined esophagus from 33-36cm, suggestive of Mercedes's, biopsied. G--non-specific striped erythema, antrum. Pre-pyloric deformity. Antral biopsies. D--1 cm ulcer inferior wall, distal bulb with clean base. Some nodularity in second portion, biopsied. IMP: Chronic reflux/possibly Mercedes's. DU Abnormal mucosa, second part of duodenum. PE: GEN: NAD LUNGS: CTAB HEART: RRR ABD: NABS, S/ND/NT NEURO/PSYCH: A & O 3 A/P: GERD, possible Mercedes's -path pending, on PO PPI Duodenal ulcer -gastric pending Upper abd pain, vomiting, loose stools - improving -- Tolerating PO, improving. Okay to DC per GI - gave business card, follow-up re: pathology, gastrin level. Continue PPI. APARNA DAVILA Dec 31, 2016 11:19
--- NOTE | 2016-12-31 11:23 | PDOC ---
G I PROGRESS NOTE Subjective Feeling better. Would like to proceed back to [place]. Physical Exam Lungs clear. RRR Abdomen soft, much less tender. Review of Relevant I have reviewed the following items haven (where applicable) has been applied. Labs Laboratory Tests Test 12/29/16 16:00 12/29/16 16:45 12/30/16 05:20 12/31/16 06:43 White Blood Count 10.0 x10^3/uL (4.0-11.0) 9.8 x10^3/uL (4.0-11.0) 9.0 x10^3/uL (4.0-11.0) Red Blood Count 5.28 x10^6/uL (4.30-5.70) 4.85 x10^6/uL (4.30-5.70) 4.89 x10^6/uL (4.30-5.70) Hemoglobin 17.8 g/dL (13.0-17.5) 16.0 g/dL (13.0-17.5) 16.1 g/dL (13.0-17.5) Hematocrit 51.3 % (39.0-53.0) 46.6 % (39.0-53.0) 47.5 % (39.0-53.0) Mean Corpuscular Volume 97 fL (79-100) 96 fL (79-100) 97 fL (79-100) Mean Corpuscular Hemoglobin 34 pg (25-35) 33 pg (25-35) 33 pg (25-35) Mean Corpuscular Hemoglobin Concent 35 g/dL (31-37) 34 g/dL (31-37) 34 g/dL (31-37) Red Cell Distribution Width 14.1 % (11.5-14.5) 14.1 % (11.5-14.5) 13.9 % (11.5-14.5) Platelet Count 251 x10^3/uL (140-400) 227 x10^3/uL (140-400) 219 x10^3/uL (140-400) Neutrophils (%) (Auto) 69 % (31-73) 61 % (31-73) 66 % (31-73) Lymphocytes (%) (Auto) 23 % (24-48) 28 % (24-48) 23 % (24-48) Monocytes (%) (Auto) 5 % (0-9) 6 % (0-9) 7 % (0-9) Eosinophils (%) (Auto) 1 % (0-3) 3 % (0-3) 3 % (0-3) Basophils (%) (Auto) 1 % (0-3) 1 % (0-3) 1 % (0-3) Neutrophils # (Auto) 6.9 x10^3uL (1.8-7.7) 6.0 x10^3uL (1.8-7.7) 5.9 x10^3uL (1.8-7.7) Lymphocytes # (Auto) 2.3 x10^3/uL (1.0-4.8) 2.8 x10^3/uL (1.0-4.8) 2.1 x10^3/uL (1.0-4.8) Monocytes # (Auto) 0.5 x10^3/uL (0.0-1.1) 0.6 x10^3/uL (0.0-1.1) 0.6 x10^3/uL (0.0-1.1) Eosinophils # (Auto) 0.1 x10^3/uL (0.0-0.7) 0.3 x10^3/uL (0.0-0.7) 0.3 x10^3/uL (0.0-0.7) Basophils # (Auto) 0.1 x10^3/uL (0.0-0.2) 0.1 x10^3/uL (0.0-0.2) 0.1 x10^3/uL (0.0-0.2) Prothrombin Time 12.6 SEC (11.7-14.0) Prothromb Time International Ratio 1.0 (0.8-1.1) Activated Partial Thromboplast Time 26 SEC (24-38) Sodium Level 142 mmol/L (136-145) 142 mmol/L (136-145) 141 mmol/L (136-145) Potassium Level 3.6 mmol/L (3.5-5.1) 4.0 mmol/L (3.5-5.1) 4.2 mmol/L (3.5-5.1) Chloride Level 104 mmol/L (98-107) 107 mmol/L (98-107) 107 mmol/L (98-107) Carbon Dioxide Level 26 mmol/L (21-32) 27 mmol/L (21-32) 27 mmol/L (21-32) Anion Gap 12 (6-14) 8 (6-14) 7 (6-14) Blood Urea Nitrogen 12 mg/dL (8-26) 11 mg/dL (8-26) 10 mg/dL (8-26) Creatinine 1.3 mg/dL (0.7-1.3) 1.0 mg/dL (0.7-1.3) 1.2 mg/dL (0.7-1.3) Estimated GFR (Cockcroft-Gault) 60.5 81.9 66.4 Glucose Level 97 mg/dL (70-99) 90 mg/dL (70-99) 96 mg/dL (70-99) Calcium Level 9.0 mg/dL (8.5-10.1) 8.2 mg/dL (8.5-10.1) 8.4 mg/dL (8.5-10.1) Total Bilirubin 0.7 mg/dL (0.2-1.0) 0.8 mg/dL (0.2-1.0) 0.9 mg/dL (0.2-1.0) Direct Bilirubin 0.1 mg/dL (0.0-0.2) 0.2 mg/dL (0.0-0.2) Aspartate Amino Transf (AST/SGOT) 20 U/L (15-37) 16 U/L (15-37) 15 U/L (15-37) Alanine Aminotransferase (ALT/SGPT) 41 U/L (16-63) 29 U/L (16-63) 32 U/L (16-63) Alkaline Phosphatase 70 U/L (46-116) 57 U/L (46-116) 62 U/L (46-116) Creatine Kinase 250 U/L (39-308) Creatine Kinase MB (Mass) 0.7 ng/mL (0.0-3.6) Creatine Kinase MB Relative Index 0.3 % (0-4) Troponin I Quantitative < 0.017 ng/mL (0.000-0.055) Total Protein 7.5 g/dL (6.4-8.2) 5.9 g/dL (6.4-8.2) 6.2 g/dL (6.4-8.2) Albumin 4.3 g/dL (3.4-5.0) 3.3 g/dL (3.4-5.0) 3.4 g/dL (3.4-5.0) Lipase 127 U/L (73-393) Urine Collection Type Unknown Urine Color Jessica Urine Clarity Clear Urine pH 5.5 Urine Specific [place] >=1.030 Urine Protein Negative mg/dL (NEG-TRACE) Urine Glucose (UA) Negative mg/dL (NEG) Urine Ketones (Stick) Negative mg/dL (NEG) Urine Blood Negative (NEG) Urine Nitrite Negative (NEG) Urine Bilirubin Negative (NEG) Urine Urobilinogen Dipstick 1.0 mg/dL (0.2 mg/dL) Urine Leukocyte Esterase Negative (NEG) Urine RBC 0 /HPF (0-2) Urine WBC Occ /HPF (0-4) Urine Squamous Epithelial Cells Occ /LPF Urine Bacteria 0 /HPF (0-FEW) Urine Opiates Screen Neg (NEG) Urine Methadone Screen Neg (NEG) Urine Barbiturates Neg (NEG) Urine Phencyclidine Screen Neg (NEG) Urine Amphetamine/Methamphetamine Neg (NEG) Urine Benzodiazepines Screen Neg (NEG) Urine Cocaine Screen Neg (NEG) Urine Cannabinoids Screen Neg (NEG) Urine Ethyl Alcohol Neg (NEG) BUN/Creatinine Ratio 8 (6-20) Albumin/Globulin Ratio 1.2 (1.0-1.7) Laboratory Tests Test 12/31/16 06:43 White Blood Count 9.0 x10^3/uL (4.0-11.0) Red Blood Count 4.89 x10^6/uL (4.30-5.70) Hemoglobin 16.1 g/dL (13.0-17.5) Hematocrit 47.5 % (39.0-53.0) Mean Corpuscular Volume 97 fL (79-100) Mean Corpuscular Hemoglobin 33 pg (25-35) Mean Corpuscular Hemoglobin Concent 34 g/dL (31-37) Red Cell Distribution Width 13.9 % (11.5-14.5) Platelet Count 219 x10^3/uL (140-400) Neutrophils (%) (Auto) 66 % (31-73) Lymphocytes (%) (Auto) 23 % (24-48) Monocytes (%) (Auto) 7 % (0-9) Eosinophils (%) (Auto) 3 % (0-3) Basophils (%) (Auto) 1 % (0-3) Neutrophils # (Auto) 5.9 x10^3uL (1.8-7.7) Lymphocytes # (Auto) 2.1 x10^3/uL (1.0-4.8) Monocytes # (Auto) 0.6 x10^3/uL (0.0-1.1) Eosinophils # (Auto) 0.3 x10^3/uL (0.0-0.7) Basophils # (Auto) 0.1 x10^3/uL (0.0-0.2) Sodium Level 141 mmol/L (136-145) Potassium Level 4.2 mmol/L (3.5-5.1) Chloride Level 107 mmol/L (98-107) Carbon Dioxide Level 27 mmol/L (21-32) Anion Gap 7 (6-14) Blood Urea Nitrogen 10 mg/dL (8-26) Creatinine 1.2 mg/dL (0.7-1.3) Estimated GFR (Cockcroft-Gault) 66.4 BUN/Creatinine Ratio 8 (6-20) Glucose Level 96 mg/dL (70-99) Calcium Level 8.4 mg/dL (8.5-10.1) Total Bilirubin 0.9 mg/dL (0.2-1.0) Aspartate Amino Transf (AST/SGOT) 15 U/L (15-37) Alanine Aminotransferase (ALT/SGPT) 32 U/L (16-63) Alkaline Phosphatase 62 U/L (46-116) Total Protein 6.2 g/dL (6.4-8.2) Albumin 3.4 g/dL (3.4-5.0) Albumin/Globulin Ratio 1.2 (1.0-1.7) Biopsies pending. Medications Current Medications Morphine Sulfate 4 mg PRN Q15MIN PRN IV/SQ PAIN GREATER THAN 3/10 Last administered on 12/29/16t 20:34; Start 12/29/16 at 16:00; Stop 12/30/16 at 00:00; Status DC Sodium Chloride 1,000 ml @ 1,000 mls/hr Q1H IV Last administered on 12/29/16 16:06; Start 12/29/16 at 15:48; Stop 12/29/16 at 16:47; Status DC Ondansetron HCl (Zofran) 4 mg 1X ONCE IV ; Start 12/29/16 at 16:00; Stop at 16:10; Status DC Sodium Chloride 1,000 ml @ 1,000 mls/hr 1X ONCE IV Last administered on 16:53; Start 12/29/16 at 17:00; Stop 12/29/16 at 17:59; Status DC Iohexol (Omnipaque 300 Mg/ml) 75 ml 1X ONCE IV Last administered on 12/29/16 19:46; Start 12/29/16 at 20:00; Stop 12/29/16 at 20:01; Status DC Info (Do NOT chart on this entry -- for MONITORING) 1 each PRN DAILY PRN MC SEE COMMENTS; Start 12/29/16 at 19:45; Stop 12/31/16 at 19:44 Ondansetron HCl (Zofran) 4 mg PRN Q8HRS PRN IV NAUSEA/VOMITING; Start 12/29/16 at 21:00; Stop 12/30/16 at 20:59; Status DC Morphine Sulfate 2 mg PRN Q2HR PRN IV SEVERE PAIN Last administered on 15:26; Start 12/29/16 at 21:00; Stop 12/31/16 at 23:59 Nicotine (Nicoderm Cq 21mg) 1 patch DAILY TD Last administered on 12/31/16 08: 44; Start 12/29/16 at 22:00 Potassium Chloride 30 meq/ Sodium Chloride 1,015 ml @ 75 mls/hr [id number] IV Last administered on 12/31/16 02:04; Start 12/29/16 at 23:00 Propofol 40 ml @ As Directed STK-MED ONCE IV ; Start 12/30/16 at 12:27; Stop 12/30 at 12:28; Status DC Pantoprazole Sodium (Protonix) 40 mg BIDAC PO Last administered on 12/31/16 06: 40; Start 12/30/16 at 16:30 Oxycodone HCl (Roxicodone) 5 mg PRN Q4HRS PRN PO PAIN Last administered on t 06:40; Start 12/30/16 at 16:30 Oxycodone HCl (Roxicodone) 10 mg PRN Q4HRS PRN PO PAIN; Start 12/30/16 at 16:30 Vitals/I & O Vital Sign - Last 24 Hours 12/30/16 12/30/16 12/30/16 12/30/16 12:03 12:42 12:57 13:12 Temp 97.8 97.8 97.8 97.8 Pulse 59 81 70 82 Resp 20 20 20 20 B/P (MAP) 100/56 93/54 99/43 Pulse Ox 96 100 93 95 O2 Delivery Nasal Cannula Room Air Room Air O2 Flow Rate 4.0 12/30/16 12/30/16 12/30/16 12/30/16 13:30 14:00 15:00 15:26 Temp 97.7 98.1 97.7 98.1 Pulse 65 65 75 Resp 18 18 B/P (MAP) 89/56 (67) 104/65 (78) 121/76 (91) Pulse Ox 94 97 O2 Delivery Room Air Room Air Room Air Room Air 12/30/16 12/30/16 12/30/16 12/30/16 16:00 18:01 19:00 20:30 Temp 98.4 98.4 Pulse 67 Resp 18 B/P (MAP) 117/71 (86) Pulse Ox 97 O2 Delivery Room Air Room Air Room Air Room Air 12/30/16 12/30/16 12/30/16 12/31/16 22:32 23:00 23:37 06:40 Temp 97.3 97.3 Pulse 83 Resp 18 B/P (MAP) 109/66 (80) Pulse Ox 97 96 96 96 O2 Delivery Room Air Room Air Room Air 12/31/16 12/31/16 12/31/16 07:00 07:50 07:50 Temp 97.5 97.5 Pulse 82 Resp 18 B/P (MAP) 125/85 (98) Pulse Ox 94 O2 Delivery Room Air Room Air Room Air Problem List Problems Medical Problems: (1) Abdominal pain Status: Acute Assessment Acid peptic disease, GERD/ulcer. Symptomatically better. Plan of Care: Continue current Tx, Mgmt Plan of Care Note OK with me to dismiss on daily PPI. Needs to establish GI f/u at home. Gave card if physician wants records, biopsy results. PADMAJA MCLAUGHLIN MD Dec 31, 2016 11:23
[2016-12-31] MEDS ORDERED: PANT40TA5 PO (11:38)
[2016-12-31] MEDS ORDERED: NICO1PAT25 TP (11:39)
[2016-12-31] MEDS ORDERED: CALC300T5 PO (11:39)
--- NOTE | 2016-12-31 13:42 | PDOC3 ---
Discharge Summary Visit Information Date of Admission: Dec 29, 2016 Date of Discharge: Dec 31, 2016 Admitting Diagnosis: abd pain Final Diagnosis GERD, possible Mercedes's -path pending, on PO PPI Duodenal ulcer -gastric pending Upper abd pain, vomiting, loose stools - improving tobacco use disorder Problems Medical Problems: (1) Abdominal pain Status: Acute Brief Hospital Course Allergies Allergies Coded Allergies Type Severity Reaction Last Updated Verified No Known Drug Allergies 12/29/16 No Vital Signs Vital Signs Date Time Temp Pulse Resp B/P (MAP) Pulse Ox O2 Delivery O2 Flow Rate FiO2 12/31/16 11:00 97.9 69 18 123/79 (94) 97 Room Air 97.9 12/30/16 12:42 4.0 Lab Results Laboratory Tests Test 12/29/16 16:00 12/29/16 16:45 12/30/16 05:20 12/31/16 06:43 White Blood Count 10.0 x10^3/uL (4.0-11.0) 9.8 x10^3/uL (4.0-11.0) 9.0 x10^3/uL (4.0-11.0) Red Blood Count 5.28 x10^6/uL (4.30-5.70) 4.85 x10^6/uL (4.30-5.70) 4.89 x10^6/uL (4.30-5.70) Hemoglobin 17.8 g/dL (13.0-17.5) 16.0 g/dL (13.0-17.5) 16.1 g/dL (13.0-17.5) Hematocrit 51.3 % (39.0-53.0) 46.6 % (39.0-53.0) 47.5 % (39.0-53.0) Mean Corpuscular Volume 97 fL (79-100) 96 fL (79-100) 97 fL (79-100) Mean Corpuscular Hemoglobin 34 pg (25-35) 33 pg (25-35) 33 pg (25-35) Mean Corpuscular Hemoglobin Concent 35 g/dL (31-37) 34 g/dL (31-37) 34 g/dL (31-37) Red Cell Distribution Width 14.1 % (11.5-14.5) 14.1 % (11.5-14.5) 13.9 % (11.5-14.5) Platelet Count 251 x10^3/uL (140-400) 227 x10^3/uL (140-400) 219 x10^3/uL (140-400) Neutrophils (%) (Auto) 69 % (31-73) 61 % (31-73) 66 % (31-73) Lymphocytes (%) (Auto) 23 % (24-48) 28 % (24-48) 23 % (24-48) Monocytes (%) (Auto) 5 % (0-9) 6 % (0-9) 7 % (0-9) Eosinophils (%) (Auto) 1 % (0-3) 3 % (0-3) 3 % (0-3) Basophils (%) (Auto) 1 % (0-3) 1 % (0-3) 1 % (0-3) Neutrophils # (Auto) 6.9 x10^3uL (1.8-7.7) 6.0 x10^3uL (1.8-7.7) 5.9 x10^3uL (1.8-7.7) Lymphocytes # (Auto) 2.3 x10^3/uL (1.0-4.8) 2.8 x10^3/uL (1.0-4.8) 2.1 x10^3/uL (1.0-4.8) Monocytes # (Auto) 0.5 x10^3/uL (0.0-1.1) 0.6 x10^3/uL (0.0-1.1) 0.6 x10^3/uL (0.0-1.1) Eosinophils # (Auto) 0.1 x10^3/uL (0.0-0.7) 0.3 x10^3/uL (0.0-0.7) 0.3 x10^3/uL (0.0-0.7) Basophils # (Auto) 0.1 x10^3/uL (0.0-0.2) 0.1 x10^3/uL (0.0-0.2) 0.1 x10^3/uL (0.0-0.2) Prothrombin Time 12.6 SEC (11.7-14.0) Prothromb Time International Ratio 1.0 (0.8-1.1) Activated Partial Thromboplast Time 26 SEC (24-38) Sodium Level 142 mmol/L (136-145) 142 mmol/L (136-145) 141 mmol/L (136-145) Potassium Level 3.6 mmol/L (3.5-5.1) 4.0 mmol/L (3.5-5.1) 4.2 mmol/L (3.5-5.1) Chloride Level 104 mmol/L (98-107) 107 mmol/L (98-107) 107 mmol/L (98-107) Carbon Dioxide Level 26 mmol/L (21-32) 27 mmol/L (21-32) 27 mmol/L (21-32) Anion Gap 12 (6-14) 8 (6-14) 7 (6-14) Blood Urea Nitrogen 12 mg/dL (8-26) 11 mg/dL (8-26) 10 mg/dL (8-26) Creatinine 1.3 mg/dL (0.7-1.3) 1.0 mg/dL (0.7-1.3) 1.2 mg/dL (0.7-1.3) Estimated GFR (Cockcroft-Gault) 60.5 81.9 66.4 Glucose Level 97 mg/dL (70-99) 90 mg/dL (70-99) 96 mg/dL (70-99) Calcium Level 9.0 mg/dL (8.5-10.1) 8.2 mg/dL (8.5-10.1) 8.4 mg/dL (8.5-10.1) Total Bilirubin 0.7 mg/dL (0.2-1.0) 0.8 mg/dL (0.2-1.0) 0.9 mg/dL (0.2-1.0) Direct Bilirubin 0.1 mg/dL (0.0-0.2) 0.2 mg/dL (0.0-0.2) Aspartate Amino Transf (AST/SGOT) 20 U/L (15-37) 16 U/L (15-37) 15 U/L (15-37) Alanine Aminotransferase (ALT/SGPT) 41 U/L (16-63) 29 U/L (16-63) 32 U/L (16-63) Alkaline Phosphatase 70 U/L (46-116) 57 U/L (46-116) 62 U/L (46-116) Creatine Kinase 250 U/L (39-308) Creatine Kinase MB (Mass) 0.7 ng/mL (0.0-3.6) Creatine Kinase MB Relative Index 0.3 % (0-4) Troponin I Quantitative < 0.017 ng/mL (0.000-0.055) Total Protein 7.5 g/dL (6.4-8.2) 5.9 g/dL (6.4-8.2) 6.2 g/dL (6.4-8.2) Albumin 4.3 g/dL (3.4-5.0) 3.3 g/dL (3.4-5.0) 3.4 g/dL (3.4-5.0) Lipase 127 U/L (73-393) Urine Collection Type Unknown Urine Color Jessica Urine Clarity Clear Urine pH 5.5 Urine Specific Florence >=1.030 Urine Protein Negative mg/dL (NEG-TRACE) Urine Glucose (UA) Negative mg/dL (NEG) Urine Ketones (Stick) Negative mg/dL (NEG) Urine Blood Negative (NEG) Urine Nitrite Negative (NEG) Urine Bilirubin Negative (NEG) Urine Urobilinogen Dipstick 1.0 mg/dL (0.2 mg/dL) Urine Leukocyte Esterase Negative (NEG) Urine RBC 0 /HPF (0-2) Urine WBC Occ /HPF (0-4) Urine Squamous Epithelial Cells Occ /LPF Urine Bacteria 0 /HPF (0-FEW) Urine Opiates Screen Neg (NEG) Urine Methadone Screen Neg (NEG) Urine Barbiturates Neg (NEG) Urine Phencyclidine Screen Neg (NEG) Urine Amphetamine/Methamphetamine Neg (NEG) Urine Benzodiazepines Screen Neg (NEG) Urine Cocaine Screen Neg (NEG) Urine Cannabinoids Screen Neg (NEG) Urine Ethyl Alcohol Neg (NEG) BUN/Creatinine Ratio 8 (6-20) Albumin/Globulin Ratio 1.2 (1.0-1.7) Laboratory Tests Test 12/31/16 06:43 White Blood Count 9.0 x10^3/uL (4.0-11.0) Red Blood Count 4.89 x10^6/uL (4.30-5.70) Hemoglobin 16.1 g/dL (13.0-17.5) Hematocrit 47.5 % (39.0-53.0) Mean Corpuscular Volume 97 fL (79-100) Mean Corpuscular Hemoglobin 33 pg (25-35) Mean Corpuscular Hemoglobin Concent 34 g/dL (31-37) Red Cell Distribution Width 13.9 % (11.5-14.5) Platelet Count 219 x10^3/uL (140-400) Neutrophils (%) (Auto) 66 % (31-73) Lymphocytes (%) (Auto) 23 % (24-48) Monocytes (%) (Auto) 7 % (0-9) Eosinophils (%) (Auto) 3 % (0-3) Basophils (%) (Auto) 1 % (0-3) Neutrophils # (Auto) 5.9 x10^3uL (1.8-7.7) Lymphocytes # (Auto) 2.1 x10^3/uL (1.0-4.8) Monocytes # (Auto) 0.6 x10^3/uL (0.0-1.1) Eosinophils # (Auto) 0.3 x10^3/uL (0.0-0.7) Basophils # (Auto) 0.1 x10^3/uL (0.0-0.2) Sodium Level 141 mmol/L (136-145) Potassium Level 4.2 mmol/L (3.5-5.1) Chloride Level 107 mmol/L (98-107) Carbon Dioxide Level 27 mmol/L (21-32) Anion Gap 7 (6-14) Blood Urea Nitrogen 10 mg/dL (8-26) Creatinine 1.2 mg/dL (0.7-1.3) Estimated GFR (Cockcroft-Gault) 66.4 BUN/Creatinine Ratio 8 (6-20) Glucose Level 96 mg/dL (70-99) Calcium Level 8.4 mg/dL (8.5-10.1) Total Bilirubin 0.9 mg/dL (0.2-1.0) Aspartate Amino Transf (AST/SGOT) 15 U/L (15-37) Alanine Aminotransferase (ALT/SGPT) 32 U/L (16-63) Alkaline Phosphatase 62 U/L (46-116) Total Protein 6.2 g/dL (6.4-8.2) Albumin 3.4 g/dL (3.4-5.0) Albumin/Globulin Ratio 1.2 (1.0-1.7) Brief Hospital Course Mr. Reno is a 41 old male, admit with acute abd pain. EGD showed ulcer, poss barrets, biopsy pending, pain better. DC home, [facility] Discharge Information Condition at Discharge: Improved Follow Up: Weeks Disposition/Orders: D/C to Home Scheduled Nicotine (NICODERM CQ 14mg), 1 PATCH TP DAILY Pantoprazole Sodium (Pantoprazole Sodium), 40 MG PO BIDAC Scheduled PRN Calcium Carbonate (Tums), 300 MG PO Q4HRS PRN for abdominal pain Patient Instructions Patient Instructions > 30 min FRITZ REEDER MD Dec 31, 2016 13:42
--- NOTE | 2017-01-01 11:32 | PATHOLOGY ---
PATHOLOGY REPORT * * * * * * * * FINAL DIAGNOSIS: A. Duodenum, "duodenum, biopsy": - No diagnostic changes. - There is no evidence of acute cryptitis, granulomas, adenomatous change, sprue-like changes, or malignancy. B. Gastric biopsy, antrum: - Mild chronic reactive gastropathy. - The immunoperoxidase stain for Helicobacter is negative. C. 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 - There is no evidence of dysplasia or malignancy. - See comment. (SHA:marlon; 01/01/2017) COMMENT: This case will also be reviewed by another pathologist and if there are any changes an additional report will follow. REPORT ELECTRONICALLY SIGNED BY: Uriel Salazar M.D. DATE/TIME: 01/01/2017 11:30 * * * * * * * * GROSS PATHOLOGY: A. The specimen is received in formalin, labeled "Jhonny Larkin and duodenum biopsy", are two irregular fragments of pineda soft tissue measuring 0.4 and a 0.2 cm in greatest dimension. Entirely submitted in A1. B. The specimen is received in formalin, labeled "Jhonny Brownleeakovich and antrum biopsy", are two irregular fragments of pineda soft tissue measuring 0.4 and a 0.2 cm in greatest dimension. Entirely submitted in B1. C. The specimen is received in formalin, labeled "Jhonny Lopezh and distal esophagus", are several irregular fragments of pineda soft tissue measuring 0.5 x 0.3 x 0.1 cm in aggregate. Entirely submitted in C1. (SWS; 12/30/2016) INITIAL CPT CODE(S): A; 45887 B; 30330, 07567 C; 71381 Professional services performed by [facility] at [facility] [address] [place] [id number] Technical services performed by [facility] at [address] [place] [address], [address], [place] [address]. SPECIMEN(S) RECEIVED: A.Duodenum biopsy B.Antrum biopsy C.Distal esophagus biopsy CLINICAL HISTORY: Abdominal pain PATIENT: JHONNY LARKIN /AGE: 8 1975 (Age: 41) PATIENT #: [id number] ALT CASE #: SPECIMEN COLLECTION DATE: 12/30/2016 SPECIMEN RECEIVED DATE: 12/30/2016 [facility] - [id number] [address] - PHONE: [phone] * * * END OF REPORT * * *
== END 2016-12-31 13:45 | disposition home or self-care (01) | DRG 384 ==
LOC: ER 15:40 → 4 NORTH 20:45
PROVIDERS: ADMIT Internal Medicine Hematology & Oncology; ATTEND Internal Medicine Hematology & Oncology
PROC: 0DB58ZX Excision of Esophagus, Via Natural or Artificial Opening Endoscopic, Diagnostic (ICD-10-PCS; 2016-12-30)
PROC: 0DB68ZX Excision of Stomach, Via Natural or Artificial Opening Endoscopic, Diagnostic (ICD-10-PCS; principal; 2016-12-30 12:30)
PROC: 0DB98ZX Excision of Duodenum, Via Natural or Artificial Opening Endoscopic, Diagnostic (ICD-10-PCS; 2016-12-30 12:30)
DX: K26.9 Duodenal ulcer, unspecified as acute or chronic, without hemorrhage or perforation (principal); K76.0 Fatty (change of) liver, not elsewhere classified; K22.70 Barrett's esophagus without dysplasia; K52.9 Noninfective gastroenteritis and colitis, unspecified; F17.210 Nicotine dependence, cigarettes, uncomplicated; K21.9 Gastro-esophageal reflux disease without esophagitis; N18.2 Chronic kidney disease, stage 2 (mild); Z82.49 Family history of ischemic heart disease and other diseases of the circulatory system
CPT/HCPCS: 36415; 74177; 76705; 80048; 80053; 80076; 80307; 81001; 82553; 82941; 83690; 84484; 85025; 85610; 85730; 88305; 88342; 93005; 96361; 96374; J2270; J2704; J7030; Q9967; 99285-25; G0479